=== PATIENT | female | born 1935 | race Caucasian/White ===

== ENCOUNTER 2016-03-06 10:19 | Emergency (ER) | payer OTHER ==
[2016-03-06 10:27] VITALS: TEMP 97.9
[2016-03-06 11:02] LABS: INR 2.75 (0.83-1.16); PROTIME(PATIENT) 29.4 SEC (12.0-15.0)
[2016-03-06 11:03] LABS: APTT 38.1 SEC (23.0-38.0)
--- NOTE | 2016-03-06 12:08 | EDPHY ---
H & P Stated Complaint: trip on curb yesterday/inj r hip on coumadin Time Seen by Provider: 03/06/16 10:29 HPI/ROS: CHIEF COMPLAINT: Right thigh pain following mechanical fall HISTORY OF PRESENT ILLNESS: The patient presents to the emergency department with complaints of right thigh pain following a mechanical fall. The patient is on Coumadin for valvular heart disease. She did not strike her head or lose consciousness. The patient fell yesterday. Since that time she has had persistent pain in her right thigh that is worse with movement. She denies any pain in the hip joint per se. She has no complaints of numbness or weakness. She denies additional traumatic injury. REVIEW OF SYSTEMS: A comprehensive 10 point review of systems is otherwise negative aside from elements mentioned in the history of present illness. Source: Patient Exam Limitations: No limitations - Personal History Current Tetanus/Diphtheria Vaccine: Yes - Medical/Surgical History Hx Asthma: No Hx Chronic Respiratory Disease: No Hx Diabetes: No Hx Cardiac Disease: Yes Hx Renal Disease: No Hx Cirrhosis: No Hx Alcoholism: No Hx HIV/AIDS: No Hx Splenectomy or Spleen Trauma: No Other PMH: CABAGX4, HTN,BBB, AICD,SVT, MIX2/defibrillator - Social History Smoking Status: Never smoked - Physical Exam Exam: General Appearance: Alert, no distress Head: Atraumatic Eyes: Pupils equal, round, reactive ENT, Mouth: No hemotympanum, no oral trauma Neck: Nontender, trachea midline Respiratory: No chest wall tender, subcutaneous air, lungs clear bilaterally Cardiovascular: Regular rate and rhythm Abdomen: Abdomen is soft and nontender, pelvis stable Skin: No lacerations, No abrasion Back: No midline T/L/S pain Extremities: Bruising noted to the lateral aspect of the right thigh, no tense compartment, no bony crepitus Neurological: A&Ox3, normal motor function, normal sensory exam Constitutional: Initial Vital Signs Temperature (C) 36.6 C 03/06/16 10:24 Heart Rate 62 03/06/16 10:24 Respiratory Rate 17 03/06/16 10:24 Blood Pressure 146/50 H 03/06/16 10:24 O2 Sat (%) 95 03/06/16 10:24 O2 Delivery Mode Room Air Allergies/Adverse Reactions: No Known Allergies Allergy (Verified 03/06/16 10:23) Home Medications: Medication Instructions Recorded Aspirin [Aspirin 81mg (*)] 81 mg PO HS 02/27/15 Atorvastatin Calcium [Lipitor 80 80 mg PO HS 02/27/15 mg] Furosemide [Lasix 20 MG (*)] 20 mg PO DAILY 02/27/15 Lisinopril [Zestril 20 mg (*)] 20 mg PO DAILY 02/27/15 Metoprolol Succinate Xr [Toprol Xl 100 mg PO HS 02/27/15 100 mg (*)] Spironolactone [Aldactone 25 MG 12.5 mg PO DAILY 02/27/15 (*)] Warfarin Sodium 11/25/15 Medical Decision Making - Diagnostics Imaging: Femur x-ray: Two view: Images reviewed by myself, negative for acute fracture. ED Course/Re-evaluation: The patient presents to the ED with right thigh pain following a mechanical fall. Her Coumadin level is therapeutic. There is no evidence of a significant hematoma or clinical evidence of a compartment syndrome. The patient's x-ray demonstrates no evidence of a fracture. Clinically the patient does not appear to have discomfort in her right hip joint. The patient is able to ambulate with a walker. At this point time I feel she likely is experiencing some subacute ecchymosis from her mechanical fall. At this point time I doubt occult fracture as she is able to ambulate with a walker. I do feel it would be reasonable to discharge the patient to home at this point time. She is comfortable ambulating with a walker and has demonstrated perforation seen doing so in the emergency department. Patient has been instructed to return to the ED for inability to ambulate, worsening symptoms or other concerns. Differential Diagnosis: Differential diagnosis considered includes femur fracture, hip fracture, hip dislocation, compartment syndrome, muscular hematoma - Data Points Laboratory Results: 03/06/16 10:45 PT 29.4 H SEC (12.0-15.0) INR 2.75 H (0.83-1.16) APTT 38.1 H SEC (23.0-38.0) Departure - Departure Disposition: Home, Routine, Self-Care Clinical Impression: Contusion of thigh, right Condition: Good Instructions: Contusion in Adults (ED) Additional Instructions: 1. Please return to the emergency department for inability to ambulate with a walker, increasing pain, numbness, weakness or other concerns. 2. Apply ice pack to right thigh 5 times a day for 20-30 minutes of time. 3. Please follow up with your primary care provider for a recheck in the next 2- 3 days.
[2016-03-06 12:29] VITALS: BP 142/83; PULSE 78; RESP 14; O2SAT 94
--- NOTE | 2016-03-06 12:51 | DX ---
Right femur - 5 views dated today Indication: Fall. Pain. Technique: AP and lateral views. Findings: The bones are anatomically aligned. No acute fracture. Minimal bilateral hip osteoarthritis and chondrocalcinosis. Extensive arterial calcification. Impression: Negative. No acute fracture.
== END 2016-03-06 12:29 | disposition home or self-care (01) ==
DX: S70.11XA Contusion of right thigh, initial encounter (principal); I10 Essential (primary) hypertension; I25.2 Old myocardial infarction; Z95.1 Presence of aortocoronary bypass graft; Z79.82 Long term (current) use of aspirin; Z79.01 Long term (current) use of anticoagulants; W18.39XA Other fall on same level, initial encounter

== ENCOUNTER 2016-11-16 12:57 | Emergency (ER) | payer OTHER ==
[2016-11-16 13:25] VITALS: RESP 17; TEMP 97.5
--- NOTE | 2016-11-16 14:37 | EDPHY ---
General Narrative: CHIEF COMPLAINT: Fall, chin injury, right finger laceration HISTORY OF PRESENT ILLNESS: Patient reports that she was walking approximately 1-2 hours ago when she tripped and hit a curb. She struck her chin on the curb as well as her right little finger. She sustained a laceration to the pinky. There is a dressing in place. No loss of consciousness. No headache. She does have some pain in the chin with a mild bruise. She has no neck pain. No chest or back pain. No pain in the left arm or either leg. She has been fully ambulatory. She was able to take the bus home from where she was and then got a ride here from her neighbor. She has had no nausea or vomiting. No visual change. No neck pain or stiffness. No other associated complaints or modifying factors. She does take Coumadin for atrial fibrillation REVIEW OF SYSTEMS: Ten systems reviewed and are negative unless otherwise noted in the HPI PCP: [facility] SPECIALISTS: [facility] PAST MEDICAL HISTORY: Atrial fibrillation, coronary artery disease, hypertension PAST SURGICAL HISTORY: CABG 16 years ago SOCIAL HISTORY: Nonsmoker. No alcohol. No illicit substance use. She is a retired RN. She has lived in [place] for 50 years FAMILY HISTORY: Noncontributory EXAMINATION General Appearance: Alert, no distress Head: normocephalic. No Koch sign. No raccoon eyes. There is ecchymosis and mild edema to the chin. Eyes: Pupils equal and round, no conjunctival pallor or injection. EOMs intact. No subconjunctival hemorrhage. No nystagmus ENT, Mouth: Mucous membranes moist. Uvula midline. Airway widely patent. No trismus. Normal alignment of the teeth. No dental fracture. No mucosal laceration. Ecchymosis to the chin without laceration. Neck: Normal inspection, supple, non-tender. No crepitus, step-off or deformity Respiratory: Lungs are clear to auscultation Cardiovascular: Regular rate and rhythm Gastrointestinal: Abdomen is soft and nontender Back: non-tender, no bony abnormalities Neurological: GCS 15. A&O, nonfocal, normal gait. Strength is symmetric in both limbs. Skin: Warm and dry, no rash. 2.5 cm oblique laceration of the base of the right pinky. This is at the MCP joint and wrapping to the ulnar side. No exposure to flexor tendon. No foreign body. Extremities: Tenderness over the area laceration. No tenderness otherwise. Full flexion extension of the affected hand without deficit. No snuffbox tenderness. No elbow tenderness. No deformity Psychiatric: Mood and affect normal DIFFERENTIAL DIAGNOSES: Including but not limited to closed head injury, mandible fracture, contusion, laceration, hematoma, intracranial hemorrhage, skull fracture, cervical sprain MDM: 1:40 p.m. Mechanical fall with a closed head injury on Coumadin as well as a right little finger injury. She is neuro intact. Her neuro exam is normal. Due to her age in the Coumadin use, I have ordered CT scans of the head and cervical spine. The area of laceration has been anesthetized. Proceed with irrigation closure. She is resting comfortably in no acute distress. 2:30 p.m. Laceration has been repaired without any complication. Tolerated well. She is neuro intact pre and postprocedure with full flexion of the involved finger. Alumifoam splint will be placed to the location of the injury. CT scans are pending at this time. 2:52 p.m. Case discussed with radiologist Dr. Sharif. No acute findings. There is incidental note of some early encephalomalacia appearance, possibly from previous stroke. No imaging for comparison available. I have notified the patient of this and recommended she follow up with primary care physician. She informs me that she does have history of previous stroke. She is discharged in stable condition PROCEDURE: Laceration repair Consent: Verbal Location: Right pinky finger, volar, at the MCP joint Length of repair: 2.5 cm oblique Complexity: Complex Layer involvement: Single Anesthesia: Local. 1% lidocaine plain. 6 mL Irrigation: Extensive Debridement: None Procedure description: Following good anesthesia, the wound was copiously irrigated. Wound bed was explored and there is no foreign body noted. No injury to the flexor tendon Wound borders were approximated well with good hemostasis. Tolerated well without complication. Suture/Staple material: 5 0 Prolene. Six simple interrupted sutures Wound care: Routine as discussed Suture/Staple removal: 7-10 Days - History Smoking Status: Never smoked - Objective Vital Signs: Initial Vital Signs Temperature (C) 97.5 F 11/16/16 13:03 Heart Rate 55 L 11/16/16 13:03 Respiratory Rate 17 11/16/16 13:03 Blood Pressure 138/48 H 11/16/16 13:03 O2 Sat (%) 93 11/16/16 13:03 O2 Delivery Mode Room Air Allergies/Adverse Reactions: No Known Allergies Allergy (Verified 11/16/16 12:59) Home Medications: Medication Instructions Recorded Aspirin [Aspirin 81mg (*)] 81 mg PO HS 02/27/15 Atorvastatin Calcium [Lipitor 80 80 mg PO HS 02/27/15 mg] Furosemide [Lasix 20 MG (*)] 20 mg PO DAILY 02/27/15 Lisinopril [Zestril 20 mg (*)] 20 mg PO DAILY 02/27/15 Metoprolol Succinate Xr [Toprol Xl 100 mg PO HS 02/27/15 100 mg (*)] Spironolactone [Aldactone 25 MG 12.5 mg PO DAILY 02/27/15 (*)] Warfarin Sodium 11/25/15 Cephalexin [Keflex (*)] 500 mg PO TID #30 cap 11/16/16 Departure - Departure Disposition: Home, Routine, Self-Care Clinical Impression: Encephalomalacia on imaging study Laceration of right little finger Qualifiers: Encounter type: initial encounter Damage to nail status: without damage Foreign body presence: without foreign body Qualified Code(s): S61.216A - Laceration without foreign body of right little finger without damage to nail, initial encounter Contusion of chin Qualifiers: Encounter type: initial encounter Qualified Code(s): S00.83XA - Contusion of other part of head, initial encounter Closed head injury Qualifiers: Encounter type: initial encounter Qualified Code(s): S09.90XA - Unspecified injury of head, initial encounter Condition: Good Instructions: Care For Your Stitches (ED), Laceration (ED), Contusion in Adults (ED) Additional Instructions: 1. Bacitracin to the wound once daily for 2 more days only 2. Keep splint in place at all times except for dressing changes 3. Keep the 1st dressing in place for 2 days then remove once daily 4. Keflex as prescribed should he develop any redness or signs of infection as discussed 5. Follow up with primary care physician or here in 7-10 days for suture removal Referrals: [facility] [Other] - As per Instructions Prescriptions: Cephalexin [Keflex (*)] 500 mg PO TID #30 cap
[2016-11-16 15:06] VITALS: BP 146/63; PULSE 50; O2SAT 95
== END 2016-11-16 15:03 | disposition home or self-care (01) ==
PROC: 0HQFXZZ Repair Right Hand Skin, External Approach (ICD-10-PCS; principal; 2016-11-16)
DX: S61.216A Laceration without foreign body of right little finger without damage to nail, initial encounter (principal); S00.83XA Contusion of other part of head, initial encounter; S09.90XA Unspecified injury of head, initial encounter; G93.89 Other specified disorders of brain; I25.810 Atherosclerosis of coronary artery bypass graft(s) without angina pectoris; I10 Essential (primary) hypertension; Z79.82 Long term (current) use of aspirin; Z79.01 Long term (current) use of anticoagulants; W01.198A Fall on same level from slipping, tripping and stumbling with subsequent striking against other object, initial encounter; Y99.8 Other external cause status; Y93.01 Activity, walking, marching and hiking
CPT/HCPCS: 12001; 70450; 72125; 99285; L3925